=== PATIENT | female | born 1975 | race Two or more races ===

== ENCOUNTER 2017-07-01 10:47 | Emergency (ER) | payer OTHER ==
[~2017-07-01] VITALS: Ht 167.6 cm; Wt 111.6 kg
[~2017-07-01 10:47] MED LIST: MEDR10TA9 PO; OMEP20CA74 PO
[2017-07-01 11:25] LABS: Urine Bilirubin Negative (Negative); Urine Blood Negative /uL (Negative); Urine Color Yellow (Yellow); Urine Glucose Normal (Normal); Urine Ketone Negative (Negative); Urine Nitrite Negative (Negative); Urine RBC 1 /hpf (0 - 4); Urine Squamous Epithelial Cell FEW /hpf (<5); Urine Urobilinogen Normal (Negative); Urine pH 6.5 (5.0-8.0)
[2017-07-01 11:27] LABS: Basophils # (auto) 0.1 uL; Basophils % (auto) 0.6 % (0.0-2.0); Eosinophils # (auto) 0.1 uL; Eosinophils % (auto) 1.4 % (0.0-7.0); Hematocrit 43.7 % (36.0-46.0); Hemoglobin 14.9 g/dL (12.2-16.2); Lymphocytes % (auto) 23.4 % (10.0-50.0); Mean Corpuscular Hemoglobin 31.1 pg (28.0-32.0); Mean Corpuscular Hgb Conc. 34.1 g/dL (32.0-36.0); Mean Corpuscular Volume 91.4 fL (80.0-100.0); Mean Platelet Volume 7.4 fL (6.9-10.8); Monocytes # (auto) 0.6 uL; Monocytes % (auto) 6.6 % (0.0-12.0); Neutrophils # (auto) 5.7 uL; Nucleated Red Blood Cells % 0.1 %; Platelet Count (auto) 242 10^3/uL (140-450); White Blood Cell 8.4 10^3/uL (4.4-10.8)
[2017-07-01 11:48] LABS: Albumin 3.8 g/dL (3.4-5.0); BUN/Creatinine Ratio 15.8; Bilirubin, Total 0.6 mg/dL (0.2-1.0); Calcium 8.4 mg/dL (8.5-10.1); Potassium 3.9 mmol/L (3.5-5.1); Total Protein 7.7 g/dL (6.4-8.2)
[2017-07-01 13:11] VITALS: BP 118/82
[2017-07-01] MEDS ORDERED: KETOROLAC TROMETH 60MG/2ML VIAL IM ONE (13:30)
== END 2017-07-01 14:45 | disposition home or self-care (01) ==
LOC: ER 10:47
DX: K76.0 Fatty (change of) liver, not elsewhere classified (principal); K82.4 Cholesterolosis of gallbladder; K80.20 Calculus of gallbladder without cholecystitis without obstruction; M54.9 Dorsalgia, unspecified; Z88.6 Allergy status to analgesic agent; Z79.899 Other long term (current) drug therapy
CPT/HCPCS: 36415; 76700; 80053; 81001; 83690; 84702; 85025; 96372; 99285; J1885

== ENCOUNTER 2022-09-02 10:26 | Emergency (ER) | payer MEDICAID, OTHER ==
[~2022-09-02] VITALS: Ht 165.1 cm; Wt 130.0 kg
[2022-09-02 11:40] VITALS: BP 146/94
[2022-09-02] MEDS ORDERED: CEPH-510 PO (13:12)
[2022-09-02] MEDS ORDERED: IBUP800T27 PO (13:12)
== END 2022-09-02 13:32 | disposition home or self-care (01) ==
LOC: ER 10:26
DX: S83.92XA Sprain of unspecified site of left knee, initial encounter (principal); S93.402A Sprain of unspecified ligament of left ankle, initial encounter; Z86.2 Personal history of diseases of the blood and blood-forming organs and certain disorders involving the immune mechanism; Z79.1 Long term (current) use of non-steroidal anti-inflammatories (NSAID); Z79.899 Other long term (current) drug therapy; Z88.8 Allergy status to other drugs, medicaments and biological substances; W10.9XXA Fall (on) (from) unspecified stairs and steps, initial encounter; Y93.89 Activity, other specified; Y92.89 Other specified places as the place of occurrence of the external cause; Y99.8 Other external cause status
CPT/HCPCS: 73562; 73610

== ENCOUNTER 2025-04-21 11:54 | Inpatient (IN) | payer MEDICAID ==
[~2025-04-21] VITALS: Ht 167.6 cm; Wt 112.7 kg
[~2025-04-21 11:54] MED LIST changes: +CEPH-510 PO; +IBUP-1456 PO
--- NOTE | 2025-04-21 12:16 | ED.PDOC ---
HPI (NEURO) HPI Comments 49 y.o female with PMHx of HTN, presents to the ED for a chief complaint of left sided head and facial heaviness associated with a tingling sensation to her left arm and left leg achiness that started around 11:20am while at work. Patient reports she was sitting at her desk, was on the phone when she felt the heaviness sensation. Patient also had an echo sensation to bilateral eats. She denies any chest pain, SOB, nausea, vomiting, slurred speech, focal deficits. Patient is alert and oriented x 4 and is ambulatory. Chief Complaint: Left Sided Weakness Time Seen by MD: 12:08 Primary Care Provider: unknown Reviewed Notes: Nurses Notes, Medications, Allergies Information Source: Patient Mode of Arrival: Ambulatory Severity: Moderate Headache Severity: Moderate Timing: Minutes (20) Duration: Since onset Headache Quality: Aching Headache Location: Other Onset: At rest Circumstances: Spontaneous Symptoms: Other History of: Hypertension Associated Signs and Symptoms: Headache, Numbness Past Medical History PAST MEDICAL HISTORY: Anemia, HTN Surgical History: , Hysterectomy (partial ) Surgical History (Other): bariatric HOME HEALTH AID History: Uterine Fibroids Family History Family History: Reviewed,noncontributory to illness Social History Smoker: Non-Smoker Alcohol: Occasionally Drugs: Denies Drug Use Lives In: Home Constitutional: denies: chills, diaphoresis, fatigue, fever, malaise, sweats, weakness, others EENTM: denies: blurred vision, double vision, ear bleeding, ear discharge, ear drainage, ear pain, ear ringing, eye pain, eye redness, hearing loss, mouth pain, mouth swelling, nasal discharge, nose bleeding, nose congestion, nose pain, photophobia, tearing, throat pain, throat swelling, voice changes, others Respiratory: denies: cough, hemoptysis, orthopnea, SOB at rest, shortness of breath, SOB with excertion, stridor, wheezing, others Cardiovascular: denies: chest pain, dizzy spells, diaphoresis, Dyspnea on exertion, edema, irregular heart beat, left arm pain, lightheadedness, palpitations, PND, syncope, others Gastrointestinal: denies: abdomen distended, abdominal pain, blood streaked bowels, constipated, diarrhea, dysphagia, difficulty swallowing, hematemesis, melena, nausea, poor appetite, poor fluid intake, rectal bleeding, rectal pain, vomiting, others Genitourinary: denies: abnormal vagina bleeding, burning, dyspareunia, dysuria, flank pain, frequency, hematuria, incontinence, pain, , vagina discharge, urgency, others Neurological: reports: headache (left sided- heaviness ), tingling (left sided arm), others (left sided facial heaviness ); denies: dizziness, fainting, left sided numbness, left sided weakness, numbness, paresthesia, pre-existing deficit, right sided numbness, right sided weakness, seizure, speech problems, tremors, weakness Musculoskeletal: denies: back pain, gout, joint pain, joint swelling, muscle pain, muscle stiffness, neck pain, others Integumetry: denies: bruises, change in color, change in hair/nails, dryness, laceration, lesions, lumps, rash, wounds, others Allergic/Immunocompromised: denies: Difficulty Healing, Frequent Infections, Hives, Itching, others Hematologic/Lymphatic: denies: anemia, blood clots, easy bleeding, easy bruising, swollen glands, others Endocrine: denies: excessive hunger, excessive sweating, excessive thirst, excessive urination, flushing, intolerance to cold, intolerance to heat, unexplained weight gain, unexplained weight loss, others Psychiatric: denies: anxiety, bipolar disorder, depression, hopeless, panic disorder, schizophrenia, sleepless, suicidal, others All Other Systems: Reviewed and Negative Physical Exam General Appearance: No Apparent Distress HEENT: Normal ENT Inspection, Pharynx Normal, TMs Normal Neck: Full Range of Motion, Non-Tender, Normal, Normal Inspection Respiratory: Chest Non-Tender, Lungs Clear, No Accessory Muscle Use, No Respiratory Distress, Normal Breath Sounds Cardiovascular: No Edema, No JVD, No Murmur, No Gallop, Normal Peripheral Pulses, Regular Rate/Rhythm Breast Exam: Deferred Gastrointestinal: No Organomegaly, Non Tender, No Pulsatile Mass, Normal Bowel Sounds, Soft Genitalia: Deferred Pelvic: Deferred Rectal: Deferred Extremities: No calf tenderness, Normal capillary refill, Normal inspection, Normal range of motion, Non-tender, No pedal edema Musculoskeletal : Apperance: Normal 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 Was a procedure done?: No Differential Diagnosis (SZ) Seizure: N/A CVA: CVA, Electrolyte Imbalance, TIA General Weakness: Electrolyte imbalance Headache: Cluster, CVA, Subarachnoid Hemorrhage X-Ray, Labs, Meds, VS Vital Signs Date Time Temp Pulse Resp B/P (MAP) Pulse Ox O2 Delivery O2 Flow Rate FiO2 04/21/25 13:26 98.7 73 16 139/77 (97) 96 98.7 04/21/25 13:26 73 16 96 Room Air Lab Test 04/21/25 12:59 04/21/25 12:15 04/21/25 12:05 Range/Units White Blood Count 5.0 4.4-10.8 10^3/uL Red Blood Count 4.81 4.0-5.20 10^6/uL Hemoglobin 14.7 12.2-16.2 g/dL Hematocrit 43.4 36.0-46.0 % Mean Corpuscular Volume 90.2 80.0-100.0 fL Mean Corpuscular Hemoglobin 30.7 28.0-32.0 pg Mean Corpuscular Hemoglobin Concent 34.0 32.0-36.0 g/dL Red Cell Distribution Width 13.1 11.8-14.3 % Platelet Count 240 140-450 10^3/uL Mean Platelet Volume 7.7 6.9-10.8 fL Neutrophils (%) (Auto) 59.4 37.0-80.0 % Lymphocytes (%) (Auto) 32.4 10.0-50.0 % Monocytes (%) (Auto) 6.8 0.0-12.0 % Eosinophils (%) (Auto) 1.3 0.0-7.0 % Basophils (%) (Auto) 0.1 0.0-2.0 % Neutrophils # (Auto) 3.0 1.6-8.6 10 ^3/uL Lymphocytes # (Auto) 1.6 0.4-5.4 10 ^3/uL Monocytes # (Auto) 0.3 0-1.3 10 ^3/uL Eosinophils # (Auto) 0.1 0-0.8 10 ^3/uL Basophils # (Auto) 0 0-0.2 10 ^3/uL Nucleated Red Blood Cells 0.2 % Sodium Level 141 136-145 mmol/L Potassium Level 3.8 3.5-5.1 mmol/L Chloride Level 104 98-107 mmol/L Carbon Dioxide Level 30 20-31 mmol/L Anion Gap 7 5-15 Blood Urea Nitrogen 13 9-23 mg/dL Creatinine 0.69 0.550-1.02 mg/dL Glomerular Filtration Rate Calc 108 >90 mL/min BUN/Creatinine Ratio 18.8 10.0-20.0 Serum Glucose 99 74-106 mg/dL Calcium Level 10.2 8.7-10.4 mg/dL Urine Color Light-yellow Yellow Urine Clarity Hazy H Clear Urine pH 6.5 5.0-9.0 Urine Specific [place] 1.017 1.001-1.035 Urine Protein Negative Negative Urine Ketones Negative Negative Urine Blood Negative Negative /uL Urine Nitrite Negative Negative Urine Bilirubin Negative Negative Urine Urobilinogen Normal Negative mg/dL Urine Leukocyte Esterase Negative Negative /uL Urine RBC None seen 0 - 4 /hpf Urine Microscopic WBC 1 0-5 /HPF Urine Squamous Epithelial Cells Mod <5 /hpf Urine Bacteria Few H None Seen /hpf Urine Glucose Normal Normal mg/dL POC Glucose 100 70-106 mg/dl CAT scan of the head shows: IMPRESSION: 1. No acute intracranial process. 2. Cerebellar tonsillar ectopia measures 5 mm, with associated crowding of the foramen magnum. Recommend follow-up noncontrast MRI of the brain without IV contrast for better characterization and to evaluate for possible Chiari I malformation. 3. Mild left ethmoid sinus disease. The urine test is negative The patient's CBC and chemistry panel are within normal limits The patient remained symptomatic An IV Hep-Lock was established We are admitting the patient will have a neurology consult There is a chance that we are also going to do an MRI to further evaluate the findings on the CAT scan The patient is being admitted We have discussed the findings with the patient and they are in agreement with the management. Images Reviewed?: Images reviewed and evaluated by me Time of 1ST Reevaluation: 13:00 Reevaluation 1ST: Unchanged Time of 2ND Reevaluation: 14:06 Reevaluation 2ND: Unchanged Patient Education/Counseling: Diagnosis, Treatment, Prognosis Family Education/Counseling: No Family Present Departure 1 Departure Time of Disposition: 14:07 Impression: Primary Impression: Left sided numbness Disposition: ADMITTED INPATIENT Admit to: Med Surg Condition: Fair Critical Care Note Critical Care Time?: No Stability Stability form required: Yes Unstable for transfer: ED Physician Assesment (Clinical assesment) Heart Score Heart Score: Heart Score Response (Comments) Value History N/A 0 EKG N/A 0 Age N/A 0 Risk Factors N/A 0 Troponin N/A 0 Total 0 I personally scribed for JESUS ROBERTS MD ([email or web address]) on 04/21/25 at 12:16. Electronically submitted by Michelle Marcano ([facility]). JESUS ROBERTS MD Apr 21, 2025 12:16
[2025-04-21 12:44] LABS: Urine Protein, UAD Negative (Negative)
--- NOTE | 2025-04-21 13:06 | DVH ---
EXAM: CT HEAD WITHOUT CONTRAST HISTORY: left sided weakness COMPARISON: None TECHNIQUE: Noncontrast axial CT images of the head were performed. Sagittal and coronal reformatted i mages were obtained. This CT exam was performed using 1 or more of the following dose reduction techn iques: Automated exposure control, adjustment of the mA and/or kv according to patient size, or the u se of iterative reconstruction techniques. Radiation Dose: CTDI volume is 56.77 mGy. Dose-length product is 1117.03 mGy*cm FINDINGS: No intracranial hemorrhage, mass, midline shift, hydrocephalus, or evidence of acute large vessel inf arct. There is cerebellar tonsillar ectopia measuring 5 mm, with associated crowding of the foramen m agnum. There is a mucous retention cyst in the left ethmoid air cells. The bilateral mastoid air cell s and middle ear spaces are clear. No cranial fracture or scalp edema. IMPRESSION: 1. No acute intracranial process. 2. Cerebellar tonsillar ectopia measures 5 mm, with associated crowding of the foramen magnum. Recom mend follow-up noncontrast MRI of the brain without IV contrast for better characterization and to ev aluate for possible Chiari I malformation. 3. Mild left ethmoid sinus disease.
[2025-04-21 13:24] LABS: Hematocrit 43.4 % (36.0-46.0); Hemoglobin 14.7 g/dL (12.2-16.2); Mean Corpuscular Hemoglobin 30.7 pg (28.0-32.0); Mean Corpuscular Volume 90.2 fL (80.0-100.0); Nucleated Red Blood Cells % 0.2 %
[2025-04-21 13:26] LABS: Chloride 104 mmol/L (98-107); Potassium 3.8 mmol/L (3.5-5.1); Sodium 141 mmol/L (136-145)
[2025-04-21 13:27] LABS: Anion Gap 7 (5-15); Carbon Dioxide 30 mmol/L (20-31)
[2025-04-21 13:28] LABS: Calcium 10.2 mg/dL (8.7-10.4)
[2025-04-21 13:32] LABS: Glucose 99 mg/dL (74-106)
[2025-04-21 13:33] LABS: BUN/Creatinine Ratio 18.8 (10.0-20.0); Blood Urea Nitrogen 13 mg/dL (9-23)
[2025-04-21] MEDS ORDERED: ONDANSETRON HCL 4 MG/2 ML VIAL IV PRN (19:15)
[2025-04-21] MEDS ORDERED: ACETAMINOPHEN 325 MG TAB PO PRN (19:15)
--- NOTE | 2025-04-21 21:54 | DVHHP2 ---
History of Present Illness Reason for Visit: Left-sided numbness History of Present Illness 49-year-old female female presents for evaluation of left-sided numbness. Patient reports that while at work today around 11:20 a.m. patient began having tingling sensation to her left arm and aching to her left leg. She subsequently developed left facial numbness as well as left-sided upper and lower extremity numbness. Patient reports that currently she still feels slight numbness to the left side of her mouth. No headache or blurred vision. No unilateral weakness. Review of Systems Review of Systems Review of systems are currently negative otherwise addressed in HPI. Allergies: Coded Allergies: Midazolam (Verified Allergy, Severe, 07/01/17) Meperidine (Verified Allergy, Unknown, 07/01/17) Medications Current Medications Medications Dose Ordered Sig/Concetta Route Start Time Stop Time Status Last Admin Dose Admin Aspirin 81 mg DAILY PO 04/22/25 10:00 Atorvastatin Calcium 10 mg HS PO 04/21/25 22:00 Losartan Potassium 25 mg DAILY PO 04/22/25 10:00 Ondansetron HCl 4 mg Q4HP PRN IV 04/21/25 19:15 Acetaminophen 650 mg Q6HP PRN PO 04/21/25 19:15 Exam Vital Signs Vital Signs Date Time Temp Pulse Resp B/P (MAP) Pulse Ox O2 Delivery O2 Flow Rate FiO2 04/21/25 19:57 97.6 62 20 145/70 (95) 99 97.6 04/21/25 13:26 Room Air Exam Gen: 49-year-old female in mild distress Skin: Warm, dry, normal color and texture, no rash. HEENT: Normocephalic atraumatic, mucous membranes moist and pink. Neck: Cervical and supraclavicular nodes normal without enlargement, trachea is midline, thyroid gland is normal without masses. Pulmonary: Clear to auscultation and percussion bilaterally. Cardiac: Regular rate and rhythm. No murmur Abdomen: Soft, nontender, nondistended, bowel sounds present all 4 quadrants, no guarding, no rigidity, no organomegaly. Extremities: No cyanosis, clubbing, no edema Neuro: Cranial nerves II through XII grossly intact, normal affect and speech, no focal motor deficits. Labs/Xrays ORDERING PHYSICIAN: JESUS ROBERTS MD PROCEDURE(s): HWOCT - HEAD WITHOUT CONTRAST REASON: left sided weakness ORDER NUMBER(s): [id number], ACCESSION NUMBER(s): [id number] EXAM: CT HEAD WITHOUT CONTRAST HISTORY: left sided weakness COMPARISON: None TECHNIQUE: Noncontrast axial CT images of the head were performed. Sagittal and coronal reformatted images were obtained. This CT exam was performed using 1 or more of the following dose reduction techniques: Automated exposure control, adjustment of the mA and/or kv according to patient size, or the use of iterative reconstruction techniques. Radiation Dose: CTDI volume is 56.77 mGy. Dose-length product is 1117.03 mGy*cm FINDINGS: No intracranial hemorrhage, mass, midline shift, hydrocephalus, or evidence of acute large vessel infarct. There is cerebellar tonsillar ectopia measuring 5 mm, with associated crowding of the foramen magnum. There is a mucous retention cyst in the left ethmoid air cells. The bilateral mastoid air cells and middle ear spaces are clear. No cranial fracture or scalp edema. IMPRESSION: 1. No acute intracranial process. 2. Cerebellar tonsillar ectopia measures 5 mm, with associated crowding of the foramen magnum. Recommend follow-up noncontrast MRI of the brain without IV contrast for better characterization and to evaluate for possible Chiari I malformation. 3. Mild left ethmoid sinus disease. Labs Test 04/21/25 12:59 04/21/25 12:15 04/21/25 12:05 Range/Units White Blood Count 5.0 4.4-10.8 10^3/uL Red Blood Count 4.81 4.0-5.20 10^6/uL Hemoglobin 14.7 12.2-16.2 g/dL Hematocrit 43.4 36.0-46.0 % Mean Corpuscular Volume 90.2 80.0-100.0 fL Mean Corpuscular Hemoglobin 30.7 28.0-32.0 pg Mean Corpuscular Hemoglobin Concent 34.0 32.0-36.0 g/dL Red Cell Distribution Width 13.1 11.8-14.3 % Platelet Count 240 140-450 10^3/uL Mean Platelet Volume 7.7 6.9-10.8 fL Neutrophils (%) (Auto) 59.4 37.0-80.0 % Lymphocytes (%) (Auto) 32.4 10.0-50.0 % Monocytes (%) (Auto) 6.8 0.0-12.0 % Eosinophils (%) (Auto) 1.3 0.0-7.0 % Basophils (%) (Auto) 0.1 0.0-2.0 % Neutrophils # (Auto) 3.0 1.6-8.6 10 ^3/uL Lymphocytes # (Auto) 1.6 0.4-5.4 10 ^3/uL Monocytes # (Auto) 0.3 0-1.3 10 ^3/uL Eosinophils # (Auto) 0.1 0-0.8 10 ^3/uL Basophils # (Auto) 0 0-0.2 10 ^3/uL Nucleated Red Blood Cells 0.2 % Sodium Level 141 136-145 mmol/L Potassium Level 3.8 3.5-5.1 mmol/L Chloride Level 104 98-107 mmol/L Carbon Dioxide Level 30 20-31 mmol/L Anion Gap 7 5-15 Blood Urea Nitrogen 13 9-23 mg/dL Creatinine 0.69 0.550-1.02 mg/dL Glomerular Filtration Rate Calc 108 >90 mL/min BUN/Creatinine Ratio 18.8 10.0-20.0 Serum Glucose 99 74-106 mg/dL Calcium Level 10.2 8.7-10.4 mg/dL Urine Color Light-yellow Yellow Urine Clarity Hazy H Clear Urine pH 6.5 5.0-9.0 Urine Specific [place] 1.017 1.001-1.035 Urine Protein Negative Negative Urine Ketones Negative Negative Urine Blood Negative Negative /uL Urine Nitrite Negative Negative Urine Bilirubin Negative Negative Urine Urobilinogen Normal Negative mg/dL Urine Leukocyte Esterase Negative Negative /uL Urine RBC None seen 0 - 4 /hpf Urine Microscopic WBC 1 0-5 /HPF Urine Squamous Epithelial Cells Mod <5 /hpf Urine Bacteria Few H None Seen /hpf Urine Glucose Normal Normal mg/dL POC Glucose 100 70-106 mg/dl SEPSIS Sepsis Screen Date sepsis recognized/suspect: Apr 21, 2025 Time Sepsis recognized/suspect: 1158 Recent Procedure: No On Antibiotic Therapy: No Respiratory Rate >20: No Heart Rate >90: No Temp<36 C (96.8 F) or >38.3 C: No SBP <90 or MAP <65 mmHG: No New Acute Mental Status Change: No Is the patient on CPAP, BIPAP,: No Physician Orders Brain Head Wo Contrast (04/21/25 19:10) Aspirin Tablet (04/22/25 10:00) Atorvastatin (Lipitor) (04/21/25 22:00) Losartan Tablet (Cozaar Tablet) (04/22/25 10:00) Admit (04/21/25 19:10) Ondansetron Hcl (Zofran) (04/21/25 19:15) Cardiac Diet-2gna,Lofat,Lochol (04/22/25 Breakfast) Condition: Stable (04/21/25 19:10) Acetaminophen Tablet (Tylenol Tablet) (04/21/25 19:15) Bedrest With Bathroom Privileg (04/21/25 19:10) Vital Signs Date Time Temp Pulse Resp B/P (MAP) Pulse Ox O2 Delivery O2 Flow Rate FiO2 04/21/25 19:57 97.6 62 20 145/70 (95) 99 97.6 04/21/25 15:30 97.6 62 20 140/65 (90) 99 97.6 Laboratory Tests Test 04/21/25 12:59 White Blood Count 5.0 10^3/uL (4.4-10.8) Assessment/Plan Assessment/Plan Assessment Rule out TIA Hypertension Obesity Plan Admit the patient to [facility] to the hospitalist MRI of the brain pending Resume home medications Continue treatment per orders. Plan discussed with: Patient My Orders Orders - SUKHI JACKSON Procedure Category Date Status Time Brain Head Wo Contrast MRI 04/21/25 Logged 19:10 Aspirin Tablet PHA 04/22/25 In Process 10:00 Atorvastatin (Lipitor) PHA 04/21/25 In Process 22:00 Losartan Tablet PHA 04/22/25 In Process (Cozaar Tablet) 10:00 Admit ADMIT 04/21/25 Transmitted 19:10 Ondansetron Hcl PHA 04/21/25 In Process (Zofran) 19:15 Cardiac DIET 04/22/25 Transmitted Diet-2gna,Lofat,Lochol Breakfast Condition: Stable LAURA 04/21/25 In Process 19:10 Acetaminophen Tablet PHA 04/21/25 In Process (Tylenol Tablet) 19:15 Bedrest With Bathroom LAURA 04/21/25 In Process Privileg 19:10 Date of Service: Apr 21, 2025 Billing Provider: SUKHI JACKSON Common Visit Codes: [id number] INP/OBS CARE (HIGH) SUKHI JACKSON Apr 21, 2025 21:54
[2025-04-21 22:23] LABS: Triglycerides 97 mg/dL (< 150)
[2025-04-21 22:25] LABS: Cholesterol 184 mg/dL (< 200); HDL Cholesterol 62 mg/dL (40-59)
[2025-04-21 23:00] VITALS: BP 129/88; PULSE 56; RESP 17; TEMP 98.2; O2SAT 97
[2025-04-21] MEDS: ATORVASTATIN 20 MG TAB PO SCH (23:43)
[2025-04-22 01:00] VITALS: BP 123/86; PULSE 58; TEMP 98.2; O2SAT 98
[2025-04-22] MEDS ORDERED: LOSA-533 PO (04:42)
[2025-04-22] MEDS ORDERED: PANT40TA2 PO (04:42)
[2025-04-22 05:00] VITALS: BP 118/63; PULSE 52; RESP 15; TEMP 98; O2SAT 94
[2025-04-22 09:00] VITALS: BP 120/79; PULSE 61; RESP 15; TEMP 97.9; O2SAT 98
[2025-04-22] MEDS: LOSARTAN POTASSIUM 25 MG TAB PO SCH (10:00)
--- NOTE | 2025-04-22 12:00 | DVHPN2 ---
Objective Vitals Vital Signs Date Time Temp Pulse Resp B/P (MAP) Pulse Ox O2 Delivery O2 Flow Rate FiO2 04/22/25 10:00 120/79 04/22/25 05:00 98.0 52 15 94 98.0 04/21/25 13:26 Room Air Medications Current Medications Medications Dose Ordered Sig/Concetta Route Start Time Stop Time Status Last Admin Dose Admin Aspirin 81 mg DAILY PO 04/22/25 10:00 04/22/25 10:00 81 MG Atorvastatin Calcium 10 mg HS PO 04/21/25 22:00 04/21/25 23:43 10 MG Losartan Potassium 25 mg DAILY PO 04/22/25 10:00 04/22/25 10:00 25 MG Ondansetron HCl 4 mg Q4HP PRN IV 04/21/25 19:15 Acetaminophen 650 mg Q6HP PRN PO 04/21/25 19:15 Laboratory Results Laboratory Tests 04/21/25 12:59 Chemistry Test 04/21/25 12:59 Calcium Level 10.2 mg/dL (8.7-10.4) Lipid panel Test 04/21/25 12:59 Cholesterol Level 184 mg/dL (< 200) HDL Cholesterol 62 mg/dL (40-59) H Triglycerides Level 97 mg/dL (< 150) HgA1c, TSH Test 04/21/25 12:59 Thyroid Stimulating Hormone (TSH) 0.58 uIU/mL (0.55-4.78) Urinalysis Test 04/21/25 12:15 Urine Color Light-yellow (Yellow) Urine Clarity Hazy (Clear) H Urine pH 6.5 (5.0-9.0) Urine Specific [place] 1.017 (1.001-1.035) Urine Protein Negative (Negative) Urine Ketones Negative (Negative) Urine Blood Negative /uL (Negative) Urine Nitrite Negative (Negative) Urine Bilirubin Negative (Negative) Urine Urobilinogen Normal mg/dL (Negative) Urine Leukocyte Esterase Negative /uL (Negative) Urine RBC None seen /hpf (0 - 4) Urine Microscopic WBC 1 /HPF (0-5) Urine Squamous Epithelial Cells Mod /hpf (<5) Urine Bacteria Few /hpf (None Seen) H Urine Glucose Normal mg/dL (Normal) PAM LUNA MD Apr 22, 2025 12:00
[2025-04-22 13:00] VITALS: BP 142/80; PULSE 56; RESP 15; TEMP 98; O2SAT 100
--- NOTE | 2025-04-22 13:09 | DVH ---
PROCEDURE: MRI BRAIN HEAD WO CONTRAST INDICATION: chiary type 1 EXAM DATE: 04/22/2025 12:27 PM COMPARISON: None TECHNIQUE: MRI of the brain without intravenous contrast. FINDINGS: Diffusion weighted images of the brain demonstrate no evidence of acute infarction. There is no evidence of acute intracranial hemorrhage, extra-axial collection, mass effect, midline s hift, herniation or hydrocephalus. The ventricles, sulci and cisterns appear age appropriate. Few punctate T2 bright foci in the deep white matter. Chiari 1 malformation. There are no signal abnormalities on the susceptibility weighted sequences. The major vascular flow voids are present. The visualized paranasal sinuses and mastoid air cells are clear. The surrounding soft tissues and o sseous structures are unremarkable. IMPRESSION: 1. No evidence of acute infarction, intracranial hemorrhage, mass effect or hydrocephalus. Few puncta te T2 bright foci in the deep white matter are nonspecific. Chiari 1 malformation. HS:Y
[2025-04-22 16:30] VITALS: BP 120/79; PULSE 60; RESP 18; TEMP 98.3; O2SAT 98
--- NOTE | 2025-04-22 17:25 | DVHDS2 ---
Discharge Summary Date of Admission Apr 21, 2025 at 19:10 Date of Discharge: Apr 22, 2025 Admitting Diagnosis Rule out TIA Hypertension Obesity Labs/Diagnostic Data: Laboratory Results Test 04/21/25 12:59 04/21/25 12:15 04/21/25 12:05 White Blood Count 5.0 10^3/uL (4.4-10.8) Red Blood Count 4.81 10^6/uL (4.0-5.20) Hemoglobin 14.7 g/dL (12.2-16.2) Hematocrit 43.4 % (36.0-46.0) Mean Corpuscular Volume 90.2 fL (80.0-100.0) Mean Corpuscular Hemoglobin 30.7 pg (28.0-32.0) Mean Corpuscular Hemoglobin Concent 34.0 g/dL (32.0-36.0) Red Cell Distribution Width 13.1 % (11.8-14.3) Platelet Count 240 10^3/uL (140-450) Mean Platelet Volume 7.7 fL (6.9-10.8) Neutrophils (%) (Auto) 59.4 % (37.0-80.0) Lymphocytes (%) (Auto) 32.4 % (10.0-50.0) Monocytes (%) (Auto) 6.8 % (0.0-12.0) Eosinophils (%) (Auto) 1.3 % (0.0-7.0) Basophils (%) (Auto) 0.1 % (0.0-2.0) Neutrophils # (Auto) 3.0 10 ^3/uL (1.6-8.6) Lymphocytes # (Auto) 1.6 10 ^3/uL (0.4-5.4) Monocytes # (Auto) 0.3 10 ^3/uL (0-1.3) Eosinophils # (Auto) 0.1 10 ^3/uL (0-0.8) Basophils # (Auto) 0 10 ^3/uL (0-0.2) Nucleated Red Blood Cells 0.2 % Sodium Level 141 mmol/L (136-145) Potassium Level 3.8 mmol/L (3.5-5.1) Chloride Level 104 mmol/L (98-107) Carbon Dioxide Level 30 mmol/L (20-31) Anion Gap 7 (5-15) Blood Urea Nitrogen 13 mg/dL (9-23) Creatinine 0.69 mg/dL (0.550-1.02) Glomerular Filtration Rate Calc 108 mL/min (>90) BUN/Creatinine Ratio 18.8 (10.0-20.0) Serum Glucose 99 mg/dL (74-106) Calcium Level 10.2 mg/dL (8.7-10.4) Triglycerides Level 97 mg/dL (< 150) Cholesterol Level 184 mg/dL (< 200) LDL Cholesterol 111 mg/dL (< 100) HDL Cholesterol 62 mg/dL (40-59) Thyroid Stimulating Hormone (TSH) 0.58 uIU/mL (0.55-4.78) Urine Color Light-yellow (Yellow) Urine Clarity Hazy (Clear) Urine pH 6.5 (5.0-9.0) Urine Specific [place] 1.017 (1.001-1.035) Urine Protein Negative (Negative) Urine Ketones Negative (Negative) Urine Blood Negative /uL (Negative) Urine Nitrite Negative (Negative) Urine Bilirubin Negative (Negative) Urine Urobilinogen Normal mg/dL (Negative) Urine Leukocyte Esterase Negative /uL (Negative) Urine RBC None seen /hpf (0 - 4) Urine Microscopic WBC 1 /HPF (0-5) Urine Squamous Epithelial Cells Mod /hpf (<5) Urine Bacteria Few /hpf (None Seen) Urine Glucose Normal mg/dL (Normal) POC Glucose 100 mg/dl (70-106) Other Laboratory Tests 04/21/25 12:59 Brief Hx & Hospital Course: This is a 49 years old female with no known past medical history come to emergency department because of left-sided numbness. Patient apparently was at work when she feel a sensation of left arm numbness and aching of her left leg. Then she developed a left facial numbness as well at left-sided upper and lower extremity numbness. So the patient decided to come to hospital for further evaluation. CT scan of the head was done showed no acute CVA patient does have a Chiari malformation type 1. MRI of the brain also was done and confirmed she had a Chiari malformation type 1 but no acute CVA. Explained to the patient what is the Chiari malformation and advised her to follow up with her primary care physician 1-2 weeks. Advised her to have the imaging starting in the future once in awhile to follow up with a Chiari malformation. Her numbness probably came from that. No further workup needed in the hospital for now. . Physical exam: HEENT: Normocephalic atraumatic pupils equal react to light and accommodation. Extraocular muscles intact, conjunctiva pink, oropharynx moist, no thrush, no exudate. Lymphatic: No lymphadenopathy Cardiovascular exam: S1, S2 was heard. No murmurs, rubs, gallops Lung: Clear on auscultation bilaterally, no wheeze, rale, rhonchi. GI: Abdominal soft, nondistended, nontenderness, positive bowel sounds. Extremity: No crepitus, cyanosis, edema. Pedal pulses present bilateral. Full range of motion. Skin: Normal turgor, no rash. Psych: Alert, oriented x3. Neurology: No focal deficits, cranial nerve II to XII grossly intact. This medical document was created using an electronic medical record system with [employer] direct computerized dictation system. Although this document has been carefully reviewed, there may still be some phonetic and typographical errors. These areas are purely typographical due to imperfections of the software programs, and do not reflect any compromise in the patient's medical care. Condition at Discharge: Stable Final Diagnosis/Problems List Rule out TIA Hypertension Obesity Chiari I malformation Left side numbness. Discharge Disposition: Home Discharge Instruct/Medications Activity: No Restrictions, As Tolerated Scheduled Losartan Potassium (Losartan Potassium), 1 TAB PO DAILY, (Reported) Pantoprazole Sodium Sesquihydr (Protonix), 40 MG PO DAILY, (Reported) Discharge Statement: "Patient was advised to return to the ER or call 911 if any headaches, dizziness, shortness of breath, chest pain, abdominal pain, bleeding, fevers, or worsening of medical condition. Patient was counseled about treatment plan, medications, possible side effects, patientverbalized understanding. All questions were answered to the best of my ability. This discharge took greater then 30 minutes in planning, reviewing documentation, counseling the patient, and discussing with other team members." ASSESSMENT ASSESSMENT Assessment Date of Service: Apr 22, 2025 Billing Provider: PAM LUNA MD Common Visit Codes: 81565-PFY/OBS DISCH DAY >30min PAM LUNA MD Apr 22, 2025 17:25
[2025-04-22 17:30] VITALS: BP 120/79; TEMP 98.3
== END 2025-04-22 17:45 | disposition home or self-care (01) | DRG 47 ==
LOC: ER 11:54 → OVERFLOW 19:10
PROVIDERS: ADMIT Internal Medicine; ATTEND Internal Medicine
DX: G45.9 Transient cerebral ischemic attack, unspecified (principal); G93.5 Compression of brain; D25.9 Leiomyoma of uterus, unspecified; I16.0 Hypertensive urgency; E66.9 Obesity, unspecified; I10 Essential (primary) hypertension; Z68.41 Body mass index [BMI] 40.0-44.9, adult; Z90.711 Acquired absence of uterus with remaining cervical stump; Z88.8 Allergy status to other drugs, medicaments and biological substances
CPT/HCPCS: 36415; 70450; 70551; 80048; 80061; 81001; 82962; 84443; 85025; G0378